=== PATIENT | male | born 1975 | race Caucasian/White ===

== ENCOUNTER → 2017-04-20 12:56 | Outpatient (CLI) | payer OTHER, SELFPAY ==
--- NOTE | 2017-04-20 12:58 | MR_ITS ---
MR foot LT wo/w con CLINICAL INDICATION: Ganglion cyst dorsal lateral side of foot increasing in size, palpable nodule left ORDERING PHYSICIAN: Jihan Ronquillo DPM PATIENT AGE: 41 years TECHNIQUE multiplanar multiecho sequences are performed without and with contrast. A marker is placed along the dorsal lateral aspect of the foot at the tarsometatarsal junction. COMPARISON: None FINDINGS: There is a small subcutaneous cystic lesion along the dorsal lateral aspect of the foot. This measures 7 x 5 x 6 mm. This is at the dorsal aspect at the of the fifth metatarsal. This shows minimal contrast enhancement. This is not associated with the peroneal is tendon but likely associated with extensor tendon at the base of the fifth metatarsal and may represent a small ganglion cyst. No other significant anomalies are evident. IMPRESSION: Small subcutaneous cystic lesion at the base of the fifth metatarsal dorsally consistent with a small ganglion cyst as described above
--- NOTE | 2017-04-20 13:31 | HMH.ITSHM ---
cyclobenzapr bisoprolol maloxicam losartan simvastatin amlodipine
== END ==
PROVIDERS: Family Provider Family Medicine; PCP Family Medicine; Visit Provider Podiatrist
DX: M67.472 Ganglion, left ankle and foot (principal)
CPT/HCPCS: 73720; A9576

== ENCOUNTER 2017-06-10 14:02 | Emergency (ER) | payer OTHER, SELFPAY ==
--- NOTE | 2017-06-10 14:14 | PC.NURSE ---
Nurse alerted me to patients chief complaint. Pt report welding yesterday. Holman something go into eye. Eye pain, slight change in vision since. Can see something black in eye but can't get it out. Discussed [facility] guidelines with pt. pt agreeable to transfer to ER. Report called to [facility], bed [address] Report given to Dr[address] Gay when I walked pt over.
--- NOTE | 2017-06-10 14:24 | HMH.EDEYEP ---
ED Disposition Clinical Impression: Foreign body, eye Disposition: Home, Self-Care Condition on Discharge: Fair Additional Instructions: 1- eye rest. 2- no patching. 3- cold compresses 4- cipro eye drops.. 5- see the eye docotor tomorrow. 6- return if needed. Prescriptions: Ciprofloxacin HCl [Ciprofloxacin 0.3% Ophth Soln] 1 - 2 drops OP Q4HWA #1 ml Referrals: Jorge Luis López MD [Primary Care Provider] - - Critical Care Critical Care Time: No Attestation: On 06/10/17, the high probability of a clinically significant, sudden or life threatening deterioration of the following system(s) required my full and direct attention, intervention and personal management. The time I documented below is in addition to time spent performing reported procedures but includes the following listed in this critical care notation. Medical Decision Making Vital Signs: 06/10/17 14:26 Respiratory Rate 16 02 Sat by Pulse Oximetry 97 - Magno Inquiry Pt receiving controlled substance: No Magno was queried for this patient: No Medical Decision Making Narrative: I was unable to remove it using a tip x 1. I discussed witht patient about eye rest, cold compresses, and abx, see his eye docotr tomorrow for FB removal. the patient denied any eye pain before and after the exam. Eye Problem HPI - General Stated complaint: something right eye - History of Present Illness HPI Narrative: 41 years old white male who was welding yesterday morning in the afternoon he felt a foreign body in the eye and he presented to the ED today. He denies having any pain just minor irritation there is no blurry vision or double vision. chief complaint: foreign body Onset (ago): day(s) (started yesterday after welding at home.) Duration: constant Location: right eye Eye Symptoms: foreign body sensation Place: home Mechanism: other ([place]elding.) Associated symptoms: none Treatments Prior to Arrival: none - Related Data Patient tetanus UTD: No Home Medications Medication Instructions Recorded Confirmed gabapentin 800 mg tablet 800 mg PO TID 04/10/17 linaclotide 72 mcg capsule 72 mcg PO QDAY 04/10/17 omeprazole 20 mg capsule,delayed 20 mg PO QDAY 04/10/17 release Previous Rx's Medication Instructions Recorded Ciprofloxacin HCl [Ciprofloxacin 1 - 2 drops OP Q4HWA #1 ml 06/10/17 0.3% Ophth Soln] Allergies Allergy/AdvReac Type Severity Reaction Status Date / Time Sulfa (Sulfonamide Allergy Intermediate I-RASH Unverified 03/27/17 14:25 Antibiotics) [SULFA (SULFONAMIDE ANTIBIOTICS)] sulfamethoxazole Allergy Intermediate I-RASH Unverified 03/27/17 14:25 [SULFAMETHOXAZOLE] trimethoprim [TRIMETHOPRIM] Allergy Intermediate I-RASH Unverified 03/27/17 14:25 [facility] History I have reviewed the patient's past medical history: Yes (hx of spinal cord tumor surgery. ) - Social History Smoking Status: Never smoker Alcohol Intake: never ROS Obtained: Yes All systems reviewed & no additional complaints Physical Exam - General General appearance: alert, in no apparent distress - Head Head exam: atraumatic, normocephalic, normal inspection - Eye Eye exam: Present: PERRL, EOMI - Expanded Eye Exam Eyelids: left: normal inspection Pupils: Right: regular, round Sclera/Conjunctival: right: normal inspection (right lower tempral conj congestions) Anterior chamber: right: normal inspection Visual acuity (R) = 20/: 20 Visual acuity (L) = 20/: 20 With correction: No Comment: 3 oclock FB at the limbus, with no corneal uptake. positive conjunctiva congestion in the right lower temporal. I attempted x 1 unsuccessfully to remove the foreign body using the q tip. - ENT ENT exam: Present: normal exam, normal oropharynx, mucous membranes moist, TM's normal bilaterally, normal external ear exam - Neck Neck exam: Present: normal inspection, full ROM, trachea midline. Absent: men
[2017-06-10 14:26] VITALS: BP 156/68; PULSE 66; RESP 16; O2SAT 97; BMI 26.6
--- NOTE | 2017-06-10 14:27 | ED_ITS ---
ED Disposition Clinical Impression: Foreign body, eye Disposition: Home, Self-Care Condition on Discharge: Fair Additional Instructions: 1- eye rest. 2- no patching. 3- cold compresses 4- cipro eye drops.. 5- see the eye docotor tomorrow. 6- return if needed. Prescriptions: Ciprofloxacin HCl [Ciprofloxacin 0.3% Ophth Soln] 1 - 2 drops OP Q4HWA #1 ml Referrals: Jorge Luis López MD [Primary Care Provider] - - Critical Care Critical Care Time: No Attestation: On 06/10/17, the high probability of a clinically significant, sudden or life threatening deterioration of the following system(s) required my full and direct attention, intervention and personal management. The time I documented below is in addition to time spent performing reported procedures but includes the following listed in this critical care notation. Medical Decision Making Vital Signs: 06/10/17 14:26 Respiratory Rate 16 02 Sat by Pulse Oximetry 97 - Magno Inquiry Pt receiving controlled substance: No Magno was queried for this patient: No Medical Decision Making Narrative: I was unable to remove it using a tip x 1. I discussed witht patient about eye rest, cold compresses, and abx, see his eye docotr tomorrow for FB removal. the patient denied any eye pain before and after the exam. Eye Problem HPI - General Stated complaint: something right eye - History of Present Illness HPI Narrative: 41 years old white male who was welding yesterday morning in the afternoon he felt a foreign body in the eye and he presented to the ED today. He denies having any pain just minor irritation there is no blurry vision or double vision. chief complaint: foreign body Onset (ago): day(s) (started yesterday after welding at home.) Duration: constant Location: right eye Eye Symptoms: foreign body sensation Place: home Mechanism: other (Welding.) Associated symptoms: none Treatments Prior to Arrival: none - Related Data Patient tetanus UTD: No Home Medications Medication Instructions Recorded Confirmed gabapentin 800 mg tablet 800 mg PO TID 04/10/17 linaclotide 72 mcg capsule 72 mcg PO QDAY 04/10/17 omeprazole 20 mg capsule,delayed 20 mg PO QDAY 04/10/17 release Previous Rx's Medication Instructions Recorded Ciprofloxacin HCl [Ciprofloxacin 1 - 2 drops OP Q4HWA #1 ml 06/10/17 0.3% Ophth Soln] Allergies Allergy/AdvReac Type Severity Reaction Status Date / Time Sulfa (Sulfonamide Allergy Intermediate I-RASH Unverified 03/27/17 14:25 Antibiotics) [SULFA (SULFONAMIDE ANTIBIOTICS)] sulfamethoxazole Allergy Intermediate I-RASH Unverified 03/27/17 14:25 [SULFAMETHOXAZOLE] trimethoprim [TRIMETHOPRIM] Allergy Intermediate I-RASH Unverified 03/27/17 14: 25 [facility] History I have reviewed the patient's past medical history: Yes (hx of spinal cord tumor surgery. ) - Social History Smoking Status: Never smoker Alcohol Intake: never ROS Obtained: Yes All systems reviewed & no additional complaints Physical Exam - General General appearance: alert, in no apparent distress - Head Head exam: atraumatic, normocephalic, normal inspection - Eye Eye exam: Present: PERRL, EOMI - Expanded Eye
--- NOTE | 2017-06-10 14:44 | PC.NURSE ---
VISION ASSESSED. BOTH EYES ARE ABLE TO SEE THE 20/30 LINE.
[2017-06-10 15:34] VITALS: BP 156/68; PULSE 66; RESP 16; TEMP 36.6; O2SAT 97
== END 2017-06-10 15:00 | disposition home or self-care (01) ==
LOC: UTC 14:14 → ER 14:23
PROVIDERS: Emergency Provider Emergency Medicine; Family Provider Family Medicine; PCP Family Medicine
DX: T15.11XA Foreign body in conjunctival sac, right eye, initial encounter (principal); Y92.099 Unspecified place in other non-institutional residence as the place of occurrence of the external cause; H16.131 Photokeratitis, right eye
CPT/HCPCS: 99281; 99282

== ENCOUNTER → 2017-07-04 15:56 | Outpatient (CLI) | payer OTHER, SELFPAY ==
--- NOTE | 2017-07-04 16:10 | XR_ITS ---
XR chest 2V HISTORY: Shortness of breath ITS.REASON: SOB,PRE-OP ORDERING PHYSICIAN: Jihan Ronquillo DPM PATIENT AGE: 41 years COMPARISON: FINDINGS: The cardiomediastinal silhouette and pulmonary vascularity are within normal limits. The lungs are clear without infiltrates, suspicious nodules, or pleural effusions. No acute bony abnormalities. IMPRESSION: Negative chest, no acute finding
[2017-07-04 16:32] LABS: Basophils % 0.7 % (0.1-2.0); Eosinophils # 0.2 K/mm3 (0.0-0.4); Eosinophils % 2.7 % (0.1-12.0); Hematocrit 44.7 % (42.0-52.0); Hemoglobin 15.5 g/dL (14.1-18.0); Lymphocytes # 2.4 K/mm3 (0.7-4.5); Lymphocytes % 40.5 K/mm3 (10-50); Mean Corpuscular HGB Conc 34.7 g/dL (31.8-35.4); Mean Corpuscular Hemoglobin 29.2 pg (27.0-31.2); Mean Corpuscular Volume 83.9 fl (80-94); Mean Platelet Volume 7.5 fl (7.4-10.4); Monocytes # 0.4 K/mm3 (0.1-1.0); Monocytes % 7.1 % (1.7-9.3); Neutrophils # 2.9 K/mm3 (1.8-7.8); Platelet Count 250 K/mm3 (142-424); Red Blood Count 5.32 M/mm3 (4.60-6.20); Red Cell Distribution Width 13.1 % (11.5-17.5); White Blood Count 5.9 K/mm3 (4.8-10.8)
[2017-07-04 18:18] LABS: Anion Gap 10.8 mEq/L (5-15); Blood Urea Nitrogen 19 mg/dL (7-18); Carbon Dioxide 28 mmol/L (21.0-32.0); Chloride 103 mmol/L (98-107); Creatinine,Serum 0.91 mg/dL (0.70-1.30); Estimated Glomerular Filt Rate 91 ml/min (>60); GFR (African American) 110 ML/MIN (>60); Glucose 101 mg/dL (74-106); Potassium 3.8 mmoL/L (3.5-5.1); Sodium 138 mmol/L (136-145)
== END ==
PROVIDERS: PCP Family Medicine; Visit Provider Podiatrist
DX: M67.472 Ganglion, left ankle and foot (principal); M79.672 Pain in left foot; Z01.818 Encounter for other preprocedural examination
CPT/HCPCS: 36415; 71046; 80048; 85025; 93005

== ENCOUNTER → 2017-10-01 09:01 | Outpatient (POV) | payer OTHER, SELFPAY | PROVIDERS: PCP Family Medicine; Visit Provider Nurse Practitioner Acute Care | DX: Z00.00 Encounter for general adult medical examination without abnormal findings (principal) ==

== ENCOUNTER → 2017-11-12 08:46 | Outpatient (POV) | payer OTHER, SELFPAY | PROVIDERS: Visit Provider Nurse Practitioner Acute Care | DX: Z00.00 Encounter for general adult medical examination without abnormal findings (principal) ==

== ENCOUNTER → 2019-12-02 09:04 | Outpatient (POV) | payer OTHER, SELFPAY | PROVIDERS: Visit Provider Dermatology | DX: Z00.00 Encounter for general adult medical examination without abnormal findings (principal) ==

== ENCOUNTER → 2020-09-24 15:40 | Outpatient (CLI) | payer OTHER, SELFPAY ==
--- NOTE | 2020-09-24 15:43 | CT_ITS ---
PROCEDURE: CT ABDOMEN PELVIS WO CON CLINICAL INDICATION: PELVIC AND LOWER ABD PAIN COMPARISON: CT ABDPELW CT ABD PELVIS W/ CONTRAST from 03/08/2015 TECHNIQUE: Axial images obtained with sagittal and coronal reformats. All CT scans at the facility use one or more dose reduction, viz: automated exposure control, ma/kV adjustment per patient size (including targeted exams where dose is matched to indication, i.e. head), or iterative reconstruction technique. FINDINGS: There is mild scar versus atelectasis in left base and single small subcentimeter pulmonary nodule in the left base again noted. There is moderate right hydronephrosis and ureterectasis secondary to 2 tandem stones in the distal right ureter just above the right UVJ, with the more proximal stone measuring 3 millimeters and the more distal stone measuring 3-4 millimeters. There are a few additional small stones in the right kidney and a few tiny stones in the left kidney. No focal liver or splenic lesion. A few calcifications noted in the spleen. Gallbladder is surgically absent. Pancreas and adrenal glands are normal. No upper abdominal lymphadenopathy. Abdominal aorta is normal. Moderate amount of stool throughout the colon. No free intraperitoneal air or fluid in the abdomen or pelvis. Appendix is surgically absent. Bladder is normal. Some central prostate gland calcifications are present. No inguinal or femoral hernia or iliac or inguinal chain lymphadenopathy. There are some degenerative changes of the lower lumbar spine. No acute bony abnormality. IMPRESSION: Moderate right hydronephrosis and ureterectasis secondary to 2 tandem stones in the distal right ureter just above the right UVJ as described above. Mild bilateral nephrolithiasis. No free intraperitoneal air or fluid. Prior cholecystectomy and appendectomy. Moderate amount of stool in the colon. Dictated by: Ronny Delgado MD 09/24/2020 16:15 Ronny Delgado MD in [facility] 09/24/2020 16:15
== END ==
PROVIDERS: PCP Family Medicine; Visit Provider Family Medicine
DX: R10.30 Lower abdominal pain, unspecified (principal); R10.2 Pelvic and perineal pain
CPT/HCPCS: 74176

== ENCOUNTER → 2020-12-07 11:47 | Outpatient (CLI) | payer OTHER, SELFPAY ==
--- NOTE | 2020-12-07 14:05 | XR_ITS ---
PROCEDURE: XR CALCANEUS RT MIN 2V CLINICAL INDICATION: PAIN OF RT HEEL COMPARISON: No exams were available for comparison FINDINGS: No fracture or dislocation. No lytic or blastic change. There is normal mineralization. The joint spaces are well-preserved. No significant degenerative/arthritic changes. No erosive changes evident. Other findings:No calcaneal spur apparent. IMPRESSION: Negative right calcaneus Dictated by: Zach Zuniga MD 12/07/2020 14:50 Zach Zuniga MD in [facility] 12/07/2020 14:50
== END ==
PROVIDERS: PCP Family Medicine; Visit Provider Family Medicine
DX: M79.671 Pain in right foot (principal)
CPT/HCPCS: 73650

== ENCOUNTER → 2020-12-18 08:07 | Outpatient (CLI) | payer OTHER, SELFPAY ==
[2020-12-18 10:39] LABS: Alanine Aminotransferase 80 U/L (12-78); Albumin Level 4.1 g/dl (3.5-5.0); Albumin/Globulin Ratio 1.3 (1.1-1.8); Alkaline Phosphatase 69 U/L (38-126); Anion Gap 14.7 mEq/L (5-15); Aspartate Amino Transferase 52 U/L (17-59); Bilirubin,Total 0.3 mg/dl (0.2-1.3); Blood Urea Nitrogen 16 mg/dl (9-20); Calcium 9.4 mg/dl (8.4-10.2); Carbon Dioxide 29 mmol/L (22.0-30.0); Chloride 101 mmol/L (98-107); Chol/HDL Ratio 6.5 (1-3.5); Cholesterol 233 mg/dl (140-200); Estimated Glomerular Filt Rate 104 ml/min (>60); GFR (African American) 126 ML/MIN (>60); Globulin 3.2 g/dL (1.3-3.2); Glucose 100 mg/dl (74-100); HDL Cholesterol 36 mg/dl (40-60); Potassium 4.7 mmoL/L (3.5-5.1); Sodium 140 mmol/L (136-145); Total Protein,Serum 7.3 g/dl (6.3-8.2); Triglycerides 253 mg/dl (30-150); VLDL Cholesterol 51 mg/dL (0-40)
[2020-12-18 10:50] LABS: Direct LDL Cholesterol 138.23 mg/dL (100-129)
[2020-12-18 11:10] LABS: Prostate Specific Ag Screen 2.5 ng/ml (0.0-4.0); Thyroid Stimulating Hormone 0.79 uIU/mL (0.465-4.68)
== END ==
PROVIDERS: Visit Provider Family Medicine
DX: E78.2 Mixed hyperlipidemia (principal); N41.1 Chronic prostatitis
CPT/HCPCS: 36415; 80053; 80061; 84443; G0103

== ENCOUNTER → 2021-11-30 16:31 | Outpatient (CLI) | payer OTHER, SELFPAY | PROVIDERS: PCP Family Medicine; Visit Provider Family Medicine | DX: R06.81 Apnea, not elsewhere classified (principal); R06.83 Snoring; R53.83 Other fatigue | CPT/HCPCS: 95806 ==

== ENCOUNTER → 2022-01-10 08:06 | Outpatient (CLI) | payer OTHER, SELFPAY ==
[2022-01-10 12:59] LABS: Chloride 102 mmol/L (98-107); Potassium 4.7 mmoL/L (3.5-5.1); Sodium 140 mmol/L (136-145)
[2022-01-10 13:02] LABS: Alanine Aminotransferase 34 U/L (12-78); Albumin Level 4.2 g/dl (3.5-5.0); Albumin/Globulin Ratio 1.6 (1.1-1.8); Alkaline Phosphatase 83 U/L (38-126); Anion Gap 14.7 mEq/L (5-15); Aspartate Amino Transferase 41 U/L (17-59); Bilirubin,Total 0.2 mg/dl (0.2-1.3); Blood Urea Nitrogen 19 mg/dl (9-20); Calcium 8.9 mg/dl (8.4-10.2); Carbon Dioxide 28 mmol/L (22.0-30.0); Chol/HDL Ratio 5.5 (1-3.5); Cholesterol 193 mg/dl (140-200); Estimated Glomerular Filt Rate 103 ml/min (>60); GFR (African American) 125 ML/MIN (>60); Globulin 2.7 g/dL (1.3-3.2); Glucose 98 mg/dl (74-100); HDL Cholesterol 35 mg/dl (40-60); Total Protein,Serum 6.9 g/dl (6.3-8.2); Triglycerides 250 mg/dl (30-150); VLDL Cholesterol 50 mg/dL (0-40)
[2022-01-10 13:13] LABS: Direct LDL Cholesterol 116.37 mg/dL (100-129)
[2022-01-10 13:34] LABS: Thyroid Stimulating Hormone 0.77 uIU/mL (0.465-4.68)
== END ==
PROVIDERS: PCP Family Medicine; Visit Provider Family Medicine
DX: E78.2 Mixed hyperlipidemia (principal); E78.1 Pure hyperglyceridemia
CPT/HCPCS: 36415; 80053; 80061; 84443

== ENCOUNTER → 2022-12-04 07:19 | Outpatient (CLI) | payer OTHER, SELFPAY ==
[2022-12-04 08:12] LABS: Chloride 101 mmol/L (98-107); Sodium 140 mmol/L (136-145)
[2022-12-04 08:14] LABS: Blood Urea Nitrogen 15 mg/dl (9-20)
[2022-12-04 08:15] LABS: Alanine Aminotransferase 48 U/L (12-78); Albumin Level 4.2 g/dl (3.5-5.0); Albumin/Globulin Ratio 1.4 (1.1-1.8); Alkaline Phosphatase 76 U/L (38-126); Aspartate Amino Transferase 41 U/L (17-59); Bilirubin,Total 0.6 mg/dl (0.2-1.3); Calcium 9.7 mg/dl (8.4-10.2); Carbon Dioxide 30 mmol/L (22.0-30.0); Cholesterol 238 mg/dl (140-200); Estimated Glomerular Filt Rate 90 ml/min (>60); GFR (African American) 109 ML/MIN (>60); Globulin 3.1 g/dL (1.3-3.2); Glucose 101 mg/dl (74-100); Total Protein,Serum 7.3 g/dl (6.3-8.2); Triglycerides 211 mg/dl (30-150); VLDL Cholesterol 42 mg/dL (0-40)
[2022-12-04 08:16] LABS: Chol/HDL Ratio 6.1 (1-3.5); HDL Cholesterol 39 mg/dl (40-60)
[2022-12-04 08:27] LABS: Direct LDL Cholesterol 134.01 mg/dL (100-129)
[2022-12-04 08:46] LABS: Thyroid Stimulating Hormone 1.06 uIU/mL (0.465-4.68)
== END ==
PROVIDERS: PCP Family Medicine; Visit Provider Family Medicine
DX: E78.1 Pure hyperglyceridemia (principal); E78.2 Mixed hyperlipidemia
CPT/HCPCS: 36415; 80053; 80061; 84443

== ENCOUNTER 2023-12-31 06:19 | Outpatient (CLI) | payer OTHER, SELFPAY ==
[2023-12-31 08:27] LABS: Albumin Level 4.3 g/dl (3.5-5.0); Chloride 104 mmol/L (98-107); Sodium 139 mmol/L (136-145)
[2023-12-31 08:30] LABS: Alanine Aminotransferase 51 U/L (12-78); Albumin/Globulin Ratio 1.6 (1.1-1.8); Aspartate Amino Transferase 47 U/L (17-59); Blood Urea Nitrogen 17 mg/dl (9-20); Carbon Dioxide 30 mmol/L (22.0-30.0); Cholesterol 186 mg/dl (140-200); Estimated Glomerular Filt Rate 79 ml/min (>60); GFR (African American) 96 ML/MIN (>60); Globulin 2.7 g/dL (1.3-3.2); Triglycerides 183 mg/dl (30-150); VLDL Cholesterol 37 mg/dL (0-40)
[2023-12-31 08:31] LABS: Alkaline Phosphatase 67 U/L (38-126); Bilirubin,Total 0.8 mg/dl (0.2-1.3); Calcium 9.6 mg/dl (8.4-10.2); Chol/HDL Ratio 4.3 (1-3.5); Glucose 106 mg/dl (74-100); HDL Cholesterol 43 mg/dl (40-60)
[2023-12-31 12:47] LABS: Direct LDL Cholesterol 102.88 mg/dL (100-129)
[2023-12-31 13:10] LABS: Prostate Specific Ag Screen 2.4 ng/ml (0.0-4.0); Thyroid Stimulating Hormone 0.91 uIU/mL (0.465-4.68)
== END 2023-12-31 23:59 | disposition home or self-care (01) ==
LOC: LAB 06:20
PROVIDERS: PCP Family Medicine; Visit Provider Family Medicine
DX: E78.2 Mixed hyperlipidemia (principal); Z12.5 Encounter for screening for malignant neoplasm of prostate
CPT/HCPCS: 36415; 80053; 80061; 84443; G0103

== ENCOUNTER 2024-07-31 07:54 | Day surgery (SDC) | payer OTHER, SELFPAY ==
[2024-07-30 08:07] VITALS: BMI 26.6
[2024-07-31 08:22] VITALS: BP 134/89; PULSE 87; RESP 18; TEMP 36.4; O2SAT 97
[2024-07-31] MEDS: LACTATED RINGERS 1000ML 1,000 ML 50 ML IV (08:31)
--- NOTE | 2024-07-31 09:05 | P.PNANES_ITS ---
[facility] Disclaimer: The information contained in this section may have been updated after the patient was seen, as this information can be updated by other users. Medical History Hyperlipemia Cholecystectomy planned Spinal cord tumor Surgical History History of appendectomy Family History Other No significant family history Social History (Updated 07/31/24 @ 08:30 by Val Ortiz RN) Smoking Status: Never smoker alcohol intake: never substance use type: denies use current occupational status: employed Travel in the last 8 weeks: None household members: spouse and family housing: house current occupation: [employer] current occupational exposures/hazards: No caffeine: Yes Have you lived/traveled outside [place] in past 30 days?: No Contact w/someone who lives/traveled outside US past 30 days?: No Exposure to someone with infectious disease in past 14 days?: No Do you have a fever (greater than 100.4 F or 38 C)?: No Have you tested positive for COVID-19: No Exposed to someone with COVID-19 in past 14 days?: No Do you have a sore throat?: No Do you have a cough?: No Do you have any weakness?: No Are you experiencing any nausea/vomitting?: No Do you have any diarrhea?: No Are you experiencing any unusual bleeding?: No Do you have any muscle aches/pain?: No Do you have any abdominal pain?: No Are you experiencing loss of taste or smell?: No [facility] Anesthesia Checklist Patient Identification Patient Identification: Arm Band and Verbal (Name & ) Structural Data Admitted From: Home Planned Operative Procedure/s: colonoscopy Verified Documents: Surgical Consent NPO Status Verified Time NPO: 00:00 Chart Verification Results Verified: None Additional verifications Anesthesia Reactions: No Hx Blood Transfusions: No Blood Transfusion Reaction: No Airway Assessment Mallampati Score:: Class II Neurological Assessment Level of Consciousness: Awake, Alert and Appropriate Anesthesia Plan Anesthesia Risk discussed: Yes Anesthesia Plan: Verified ASA Class: II Anesthesia Type: MAC
--- NOTE | 2024-07-31 09:26 | P.HP_ITS ---
History of Present Illness *Admission Date: 07/31/24 *Reason for visit:: Screening for colon cancer *History of present illness: Mr. Mora is a 48-year-old gentleman who is here for screening colonoscopy. The examination is deemed medically necessary for screening. The patient has been seen, interviewed and examined prior to the procedure by both myself and the anesthesia provider. [facility] Disclaimer: The information contained in this section may have been updated after the patient was seen, as this information can be updated by other users. Medical History (Updated 07/31/24 @ 09:30 by Jimi Akins II, MD) Hyperlipemia Cholecystectomy planned Spinal cord tumor Surgical History History of appendectomy Family History Other No significant family history Social History (Updated 07/31/24 @ 08:30 by Val Ortiz RN) Smoking Status: Never smoker alcohol intake: never substance use type: denies use current occupational status: employed Travel in the last 8 weeks: None household members: spouse and family housing: house current occupation: [employer] current occupational exposures/hazards: No caffeine: Yes Have you lived/traveled outside US in past 30 days?: No Contact w/someone who lives/traveled outside US past 30 days?: No Exposure to someone with infectious disease in past 14 days?: No Do you have a fever (greater than 100.4 F or 38 C)?: No Have you tested positive for COVID-19: No Exposed to someone with COVID-19 in past 14 days?: No Do you have a sore throat?: No Do you have a cough?: No Do you have any weakness?: No Are you experiencing any nausea/vomitting?: No Do you have any diarrhea?: No Are you experiencing any unusual bleeding?: No Do you have any muscle aches/pain?: No Do you have any abdominal pain?: No Are you experiencing loss of taste or smell?: No Other Medical History Have you received the Flu Vaccine for this season: Yes Have you received the Pneumonia Vaccine: No Review of Systems Review of Systems Review of systems (narrative): Negative *Cardiovascular Comments: Negative *Gastrointestinal Comments: Negative *Genitourinary Comments: Negative *Musculoskeletal Comments: Negative *Neurologic Comments: Negative Meds Home Medications and Allergies Home Medications ?Medication ?Instructions ?Recorded ?Confirmed ?Type gabapentin 800 mg tablet 800 mg PO TID Pain 04/10/17 07/31/24 History omeprazole 20 mg capsule,delayed 20 mg PO QDAY GERD 04/10/17 07/31/24 History release cyclobenzaprine 10 mg tablet 10 mg PO BID muscle relaxer 07/10/17 07/31/24 History leucovorin 4 mg-pyridoxal 1 tab-cap PO DAILY #90 tabs 05/30/24 07/31/24 Rx phosphate 50 mg-mecobalamin 2 mg tablet (Folinic-Plus) sodium,potassium,mag sulfates 17.5 See Rx Instructions PO .COMPLEX 07/16/24 Rx gram-3.13 gram-1.6 gram oral soln #354 mL (Suprep Bowel Prep Kit) New Prescriptions to Start Prescriptions: Allergies Allergy/AdvReac Type Severity Reaction Status Date / Time Sulfa (Sulfonamide Allergy Intermediate I-RASH Verified 07/31/24 08:19 Antibiotics) (SULFA (SULFONAMIDE ANTIBIOTICS)) sulfamethoxazole Allergy Intermediate I-RASH Verified 07/31/24 08:19 (SULFAMETHOXAZOLE) trimethoprim (TRIMETHOPRIM) Allergy Intermediate I-RASH Verified 07/31/24 08:19 Exam Data for Last 24 hours Vital signs and Labs for Last 24 Hours: Temp Pulse Resp BP Pulse Ox O2 Del Method 97.6 F 87 18 134/89 97 Room Air 07/31/24 08:22 07/31/24 08:22 07/31/24 08:22 07/31/24 08:22 07/31/24 08:22 07/31/24 08:22 I & O for Last 24 hours: Intake & Output 07/28/24 07/29/24 07/30/24 07/31/24 23:59 23:59 23:59 23:59 Weight 160 lb *Routine HEENT Exam Head: Present normocephalic Eye: Present EOMI and PERRL ENT: Present mucous membranes moist *Routine Neck Exam Neck: Present supple *Routine Respiratory Exam Respiratory: Present CTA bilaterally *Routine Cardiovascular Exam Cardiovascular: Present RRR *Routine Abdominal Exam Abdominal: Present soft and normoactive bowel sounds; Absent tenderness *Routine Rectal Exam Rectal:: deferred *Routine Genitalia Exam Genitalia:: deferred *Routine Extremities Exam Extremities: Absent cyanosis, clubbing or edema *Routine Skin Exam Skin: Present warm; Absent rash *Routine Neurological Exam Neurological: Present alert and oriented X3 Assessment and Plan *Assessment and plan (1) Screening for colon cancer: Status: Acute Category: Medical Code(s): Z12.11 - Encounter for screening for malignant neoplasm of colon Plan A/P: 1. Screening for colon cancer is the preprocedural diagnosis. The patient will be anesthetized/sedated using MAC sedation. The patient has been seen and examined. Cardiac and lung assessment prior to the examination is stable. Proceed with planned screening colonoscopy.
[2024-07-31 09:29] VITALS: O2SAT 100
--- NOTE | 2024-07-31 09:30 | [facility].PROCNOTE ---
[facility] Procedure Note Date: 07/31/24 Time: 09:46 Procedure Note:: Colonoscopy Procedure Report: Colonoscopy with cold snare polypectomy Endoscopist: Jimi Akins II, MD Referring physician: Jorge Luis López MD Date of Procedure: July 31, 2024 Equipment: Olympus 190 variable stiffness pediatric colonoscope Sedation: MAC sedation Indication: Mr. Mora is a 48-year-old gentleman who is here for screening colonoscopy. The patient did have a normal colonoscopy 11 years ago (Allan Miller MD) and had a normal colonoscopy with oh in December 2017 (7 years ago). 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 He reports no rectal bleeding or weight loss. He does state that his maternal grandfather had colon cancer. He does get some bloating and intermittent abdominal discomfort. Procedure: Prior to the procedure, a history and physical exam was performed, and patient's medications and allergies were reviewed. The risks, benefits and alternatives of the sedation and procedure were discussed with the patient. All questions were answered and informed consent was obtained. The patient was brought to the procedure room. Patient identification and proposed procedure were verified by the physician and the nurse. The patient was placed in a left lateral decubitus position and the scope was passed under direct vision. Throughout the procedure, the patient's blood pressure, pulse, and oxygen saturations were monitored continuously. The colonoscopy was accomplished without difficulty. The patient tolerated the procedure well. Findings: On digital rectal examination there was normal rectal tone. There were no external hemorrhoids. The prostate was 2+, smooth, soft, symmetric without nodules. The colonoscope was introduced through the anal canal to the rectum and advanced to the cecum. The ileocecal valve and appendiceal orifice were identified. The scope was advanced a short distance into the ileum which appeared grossly normal. The scope was then withdrawn into the colon. The cecum, ascending and transverse colon and mucosa were grossly normal. There were very mildly scattered diverticuli throughout the descending and sigmoid colon (LEFT colon). The rectum had some mild mucosal erythema but not loss of vascular pattern and there were 2 reddish diminutive polyps (2 and 3 mm) which were removed via cold snare polypectomy (possible hyperplastic or inflammatory polyps). Upon retroflexion within the rectum there were grade 2 internal hemorrhoids. The preparation was excellent throughout with Bluebell Preparation Score of 9. The cecal time was 12 minutes. Impression: 1. Diminutive rectal polyps x 2 (2 and 3 mm)?rule out hyperplastic or inflammatory polyps 2. Mild left-sided diverticulosis 3. Grade 2 internal hemorrhoids Plan: I will follow-up the polyp histology and recommend repeat surveillance colonoscopy again in 7 to 10 years based upon the pathology. Those persons that constitute having a stronger family history of colorectal cancer are those with a first-degree relative (parent, sibling, or child) diagnosed with colon cancer when they were younger than 50, or if more than one first-degree relative is affected. It is in these persons, that we recommend surveillance colonoscopy every 5 years. Persons that have a first-degree family member greater than 60 years of age at the time of their diagnosis are not deemed to be at greater risk because most colon cancers are sporadic (environmental and other factors) and are not hereditary. Only about 5 to 10 percent of colon cancer is hereditary. 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 Slow transit constipation refers to slowed movement of contents through the digestive tract and this type of constipation responds very well to most laxatives. Outlet dysfunction, which makes up 50% of those with constipation, refers to an issue with the actual elimination mechanism of stool. The diagnosis of outlet dysfunction constipation is often made in those patients with constipation that respond poorly or not at all to standard laxatives such as osmotics (MiraLAX, Linzess, Trulance), fiber supplements, stimulant laxatives, diet and fluid intake. Up to 50% of patients with chronic constipation have pelvic floor dysfunction (PFD, or dyssynergia). This condition is characterized by impaired coordination between pelvic floor muscle (e.g., puborectalis) relaxation and weakness of the defecatory mechanism which is necessary for normal defecation and bowel evacuation. Defecatory function is a delicate balance between the nerves and muscles. The nerves that arise from the sacral spine are very closely tied to bowel/rectal evacuation. This sacral nervous system allows you to recognize when your rectum is full and allows you to correctly contract muscles to allow for your rectum to evacuate fully. When this balance is upset there is incorrect communication between the nervous system and defecatory muscles (i.e. neuromuscular). Unfortunately, pelvic floor dysfunction is not widely recognized as a possible cause of chronic constipation. As a result, many patients with medically refractory constipation do not receive optimal therapies that enable them to recover normal bowel habits. When mechanical, anatomic, and disease- and diet-related causes of constipation have been ruled out, clinical suspicion should be raised to the possibility that pelvic floor dysfunction is causing or contributing to constipation. The biggest mainstay of treatment for pelvic floor dysfunction includes retraining the pelvic floor muscles with biofeedback physical therapy. Most reviews conclude that more than 70% of adult patients complaining of pelvic floor dyssynergia are likely to benefit from biofeedback training (to completion) and so this is the treatment of choice for the problem. In some large tertiary centers of excellence (i.e. [facility] and [facility]), a larger array of additional diagnostic tests are performed included anorectal manometry and electromyography, barium defecography, water-filled balloon expulsion from the rectum and colonic transit studies with radiopaque markers are often utilized to assess severity. Most of this testing is not regionally available and most feel it is not feasible especially in the setting of failed agents and laxatives. I would recommend pelvic floor physical therapy.
[2024-07-31 09:49] VITALS: BP 118/66; PULSE 90; RESP 16; TEMP 36.3; O2SAT 96
[2024-07-31 09:59] VITALS: BP 121/70; PULSE 91; RESP 16; O2SAT 97
[2024-07-31 10:09] VITALS: BP 118/74; PULSE 87; RESP 16; O2SAT 97
== END 2024-07-31 10:49 | disposition home or self-care (01) ==
PROVIDERS: PCP Family Medicine; Visit Provider Internal Medicine Gastroenterology
PROC: 0DJD8ZZ Inspection of Lower Intestinal Tract, Via Natural or Artificial Opening Endoscopic (ICD-10-PCS; CPT 45378; principal; 2024-07-31 09:30)
DX: Z12.11 Encounter for screening for malignant neoplasm of colon (principal); K63.5 Polyp of colon; K57.30 Diverticulosis of large intestine without perforation or abscess without bleeding; K64.1 Second degree hemorrhoids
CPT/HCPCS: 45385; J7120

== ENCOUNTER 2024-12-26 06:37 | Outpatient (CLI) | payer OTHER, SELFPAY ==
--- OUTSIDE RECORDS SUMMARY | 2024-12-26 06:41 | XMS_ITS | Clinical Summary ---
Author Organization Healthcare Address [address] [place] [address] Care Team Providers Care Weather Anchor Name Role Phone Jose Roberto Pedroza MD Primary Care Provider [phone] Family History Medical History Relation Name Comments Hypertension Father Conversions - Other Maternal Grandfather Carcinoma Of The Large Intestine Hyperlipidemia Mother Conversions - Other Other Carcinom a Of The Large Intestine Relation Name Status Comments Father Maternal Grandfather Mother Other Social History Tobacco Use Types Packs/Day Years Used Date Smoking Tobacco: Never Alcohol Use Standard Drinks/Week Comments Yes 0 (1 standard drink = 0.6 oz pure alcohol) Alcoholic Drinks/day: Minimum alcohol consumption Sex and Gender Information Value Date Recorded Sex Assigned at Not on file Legal Sex Male 8:19 PM EDT Gender Identity Not on file Sexual Orientation Not on file Last Filed Vital Signs Vital Sign Reading Time Taken Comments Blood Pressure - - Pulse - - Temperature - - Respiratory Rate - - Oxygen Saturation - - Inhaled Oxygen Concentration - - Weight 76.7 kg (169 lb 1.5 oz) 12/29/2016 11:33 AM EDT Height 167.6 cm (5' 6 ) 12/29/2016 11:33 AM EDT Body Mass Index 27.29 12/29/2016 11:33 AM EDT Plan of Treatment Not on file Care Teams Weather Anchor Relationship Specialty Start Date End Date Jose Roberto Pedroza MD [address] [place] [address] [place] [id number] PCP - General 08/20/20
[2024-12-26 10:29] LABS: Chloride 100 mmol/L (98-107)
[2024-12-26 10:30] LABS: Albumin Level 4.5 g/dl (3.5-5.0); Potassium 4.0 mmoL/L (3.5-5.1); Sodium 140 mmol/L (136-145)
[2024-12-26 10:32] LABS: Anion Gap 14.0 mEq/L (5-15); Blood Urea Nitrogen 14 mg/dl (9-20); Carbon Dioxide 30 mmol/L (22.0-30.0); Creatinine,Serum 0.90 mg/dl (0.66-1.25); Estimated Glomerular Filt Rate 89 ml/min (>60); GFR (African American) 108 ML/MIN (>60)
[2024-12-26 10:33] LABS: Alanine Aminotransferase 47 U/L (12-78); Albumin/Globulin Ratio 1.7 (1.1-1.8); Alkaline Phosphatase 70 U/L (38-126); Aspartate Amino Transferase 48 U/L (17-59); Bilirubin,Total 0.6 mg/dl (0.2-1.3); Calcium 9.7 mg/dl (8.4-10.2); Cholesterol 158 mg/dl (140-200); Globulin 2.7 g/dL (1.3-3.2); Glucose 105 mg/dl (74-100); HDL Cholesterol 40 mg/dl (40-60); Total Protein,Serum 7.2 g/dl (6.3-8.2); Triglycerides 124 mg/dl (30-150)
[2024-12-26 11:01] LABS: Thyroid Stimulating Hormone 1.09 uIU/mL (0.465-4.68)
== END 2024-12-26 23:59 | disposition home or self-care (01) ==
LOC: LAB 06:39
PROVIDERS: PCP Family Medicine; Visit Provider Family Medicine
DX: E78.2 Mixed hyperlipidemia (principal); Z12.5 Encounter for screening for malignant neoplasm of prostate
CPT/HCPCS: 36415; 80053; 80061; 84443; G0103